=== PATIENT | male | born 1965 | race African-American/Black ===

== ENCOUNTER 2021-03-26 14:59 | Inpatient (IN) | payer OTHER ==
[2021-03-26] MEDS ORDERED: MAGNESIUM HYDROX 2400MG/30ML ORAL SUSPENSION 30 ML CUP PO PRN (18:20)
[2021-03-26] MEDS ORDERED: ACETAMINOPHEN 325 MG TABLET (FP) PO PRN ×2 (18:20)
[2021-03-26] MEDS ORDERED: MENTHOL/PHENOL 1 EACH UD MM PRN (18:20)
[2021-03-26] MEDS ORDERED: ONDANSETRON *ODT* 4 MG TABLET SL PRN (18:20)
[2021-03-26] MEDS ORDERED: IBUPROFEN 400 MG TABLET (FP) PO PRN (18:20)
[2021-03-26] MEDS ORDERED: MAGNESIUM CITRATE 300 ML BOTTLE PO PRN (18:20)
[2021-03-26] MEDS ORDERED: NICOTINE 10 MG CARTRIDGE (INHALER) IH PRN (18:20)
[2021-03-26] MEDS ORDERED: BISMUTH SUBSALICYLATE 524 MG/30 ML PO PRN (18:20)
[2021-03-26] MEDS ORDERED: MAG HYDROX/AL HYDROX/SIMETH 30 ML UNIT-DOSE CUP PO PRN (18:20)
[2021-03-26] MEDS ORDERED: NICOTINE POLACRILEX 2 MG GUM BUC PRN (18:21)
[2021-03-26] MEDS ORDERED: diazePAM 5 MG TABLET PO PRN (18:22)
[2021-03-26 20:10] VITALS: BMI 24.7
[2021-03-26] MEDS: MELATONIN 5 MG TABLETS PO SCH (22:37)
[2021-03-26] MEDS: THIAMINE HCL 100 MG TABLET (FP) PO SCH (22:38)
[2021-03-26] MEDS: METHOCARBAMOL 500 MG TABLET PO PRN (22:38)
[2021-03-26] MEDS: hydrOXYzine PAMOATE 25 MG CAPSULE (FP) PO PRN (22:38)
[2021-03-27] MEDS ORDERED: diazePAM 5 MG TABLET PO PRN (09:11)
[2021-03-27] MEDS: METHOCARBAMOL 500 MG TABLET PO PRN (10:50)
[2021-03-27] MEDS: hydrOXYzine PAMOATE 25 MG CAPSULE (FP) PO PRN (10:50)
[2021-03-27] MEDS: PRENATAL VITAMINS W/ FOLIC ACID TABLET (FP) PO SCH (10:50)
[2021-03-27] MEDS: diazePAM 5 MG TABLET PO SCH ×3 (10:50→22:33)
[2021-03-27 10:51] LABS: HEMATOCRIT 42.9 % (35.4-49); HEMOGLOBIN 14.6 GM/dL (11.7-16.9); MCH 33.7 pg (25.7-33.7); MCHC 34.1 g/dl (32.0-35.9); MEAN CELL VOLUME 98.9 fl (80-96); MEAN PLT VOLUME 8.7 fl (7.5-11.1); PLATELET COUNT 296 10^3/uL (134-434); RBC 4.34 M/mm3 (4.00-5.60); RDW 13.2 % (11.9-15.9); WHITE BLOOD COUNT 4.2 K/mm3 (4.0-10.0)
[2021-03-27 11:01] LABS: CALCIUM 8.9 mg/dL (8.5-10.1)
[2021-03-27 11:02] LABS: ALBUMIN 3.4 g/dl (3.4-5.0); BLOOD UREA NITROGEN 15.6 mg/dL (7-18)
[2021-03-27 11:04] LABS: CREATININE 0.9 mg/dL (0.55-1.3)
[2021-03-27 11:06] LABS: BILIRUBIN,TOTAL 0.5 mg/dL (0.2-1); TOT PROT 7.2 g/dl (6.4-8.2)
[2021-03-27] MEDS: THIAMINE HCL 100 MG TABLET (FP) PO SCH (22:34)
[2021-03-27] MEDS: MELATONIN 5 MG TABLETS PO SCH (22:34)
[2021-03-28] MEDS: diazePAM 5 MG TABLET PO SCH ×2 (05:23→10:25)
[2021-03-28 10:14] VITALS: BP 134/69; PULSE 62; TEMP 98.4
[2021-03-28] MEDS: PRENATAL VITAMINS W/ FOLIC ACID TABLET (FP) PO SCH (10:25)
[2021-03-29] MEDS ORDERED: diazePAM 5 MG TABLET PO SCH (06:00)
[2021-03-30] MEDS ORDERED: diazePAM 5 MG TABLET PO SCH (06:00)
[2021-03-31] MEDS ORDERED: diazePAM 5 MG TABLET PO ONE (06:00)
== END 2021-03-28 10:35 | disposition left against medical advice (07) | DRG 770 ==
LOC: YASAS 14:59 → Y6N 19:10 → UNDOADMIN 19:10 → Y6N 19:12 → UNDOADMIN 19:12
PROVIDERS: ADMIT Allergy & Immunology; ATTEND Allergy & Immunology
PROC: HZ2ZZZZ Detoxification Services for Substance Abuse Treatment (ICD-10-PCS; principal; 2021-03-26)
DX: F10.230 Alcohol dependence with withdrawal, uncomplicated (principal); F17.210 Nicotine dependence, cigarettes, uncomplicated; F31.9 Bipolar disorder, unspecified; F19.24 Other psychoactive substance dependence with psychoactive substance-induced mood disorder; M17.0 Bilateral primary osteoarthritis of knee; Z86.69 Personal history of other diseases of the nervous system and sense organs; Z59.00 Homelessness unspecified; Z91.010 Allergy to peanuts; Z91.013 Allergy to seafood
CPT/HCPCS: 36415; 80053; 80178; 85027; 86593; 86780; C9803; U0003; U0005